=== PATIENT | male | born 1995 | race Hispanic/Latino ===

== ENCOUNTER 2024-05-28 15:11 | Emergency (ER) | payer SELFPAY ==
[~2024-05-28] VITALS: Ht 167.6 cm; Wt 81.6 kg
--- NOTE | 2024-05-28 15:15 | ERN ---
ED Note History of Present Illness Stated Complaint: BACK PAIN Chief Complaint: Back Pain-No Injury Time Seen by MD: 15:13 Dictation: PATIENT IS A 29-YEAR-OLD MALE COMING IN VIA EMS WITH COMPLAINTS OF DIFFUSE LUMBAR PAIN WITH LEFT LEG SCIATICA ONSET WAS SEVERAL DAYS PRIOR TO ARRIVAL. HE STATES HE WAS DOING NOTHING HAS NOT DONE ANY LIFTING TWISTING WEIGHTLIFTING. NO CHANGE IN BOWEL OR BLADDER FUNCTION NO CHANGE IN URINATION. PRIMARY CARE DOCTOR Allergies: Coded Allergies: No Known Drug Allergies (Unverified Allergy, Unknown, 05/28/24) Past Medical History RN Note Reviewed/Agreed w/PFSH: Yes Review of System Dictation CONSTITUTIONAL: NEGATIVE EXCEPT FOR HPI HEAD/FACE: NEGATIVE EXCEPT FOR HPI EENT: NEGATIVE EXCEPT FOR HPI RESPIRATORY: NEGATIVE EXCEPT FOR HPI GASTROINTESTINAL/ABDOMINAL: NEGATIVE EXCEPT FOR HPI GENITOURINARY: NEGATIVE EXCEPT FOR HPI MUSCULOSKELETAL: NEGATIVE EXCEPT FOR HPI DIFFUSE LUMBAR PAIN LEFT SCIATICA INTEGUMENTARY: NEGATIVE EXCEPT FOR HPI NEUROLOGICAL/PSYCH: NEGATIVE EXCEPT FOR HPI HEMATOLOGIC/LYMPHATIC: NEGATIVE EXCEPT FOR HPI ALL SYSTEMS NEGATIVE, EXCEPT NOTED ABOVE. 13 POINT REVIEW OF SYSTEMS ASSESSED AND ALL NEGATIVE EXCEPT FOR ABOVE. Initial Vital Sign VS Vital Signs Date Time Temp Pulse Resp B/P (MAP) Pulse Ox O2 Delivery O2 Flow Rate FiO2 05/28/24 15:14 99.0 60 16 116/82 98 Room Air 0 05/28/24 15:35 21 Physical Exam Dictation VITAL SIGNS REVIEWED GENERAL APPEARANCE: ALERT, ORIENTED X 3, MODERATE ACUTE DISTRESS, WELL DEVELOPED, NOURISHED. HEAD AND FACE: NON-TRAUMATIC. EYES: PERRL, PINK CONJUNCTIVAS, EYELID NO TRAUMA, ANTERIOR CHAMBER WITH ARCUS SENILIS. EARS: PINNAS INTACT AND NO SIGNS OF TRAUMA OR ERYTHEMA EAR CANALS CLEAR AND NO DISCHARGE TM NO ERYTHEMA NOSE: NO DISCHARGE, NO BLEEDING. OROPHARYNX: MOUTH NORMAL, TONGUE PINK, PHARYNX CLEAR,NO ERYTHEMA, TONSILS NO EXUDATES, NO ABSCESSES NOTED, MUCOUS MEMBRANE MOIST NECK: SUPPLE, NON-TENDER, NO THYROMEGALY, NO MASSES, NO JVD, NO BRUITS BREAST:DEFERRED CHEST:NO TENDERNESS, NO CREPITUS, NO PARADOXICAL MOVEMENT, NO RETRACTIONS LUNGS:CLEAR, WELL-VENTILATED, SYMMETRIC, NO RALES, NO WHEEZING, NO RHONCHI, NO STRIDOR, GOOD BREATH SOUNDS BILATERALLY HEART: REGULAR RATE, REGULAR RHYTHM, NO MURMUR, NO GALLOPS VASCULAR: NO PERIPHERAL EDEMA, ABDOMEN: SOFT, POSITIVE BOWEL SOUNDS, NONDISTENDED, NO GUARDING, NONTENDER, NO REBOUND, NO MASSES NO HEPATOMEGALY, NO SPLENOMEGALY, NO OCAMPO'S SIGN, NO HERNIAS. RECTAL: DEFERRED GENITAL: DEFERRED NEUROLOGICAL: NORMAL SPEECH, MOTOR FUNCTION INTACT, SENSORY FUNCTION INTACT MUSCULOSKELETAL: NECK NONTENDER, FULL RANGE OF MOTION, DIFFUSE LUMBAR PAIN WITHOUT STEP-OFF HER SCIATICA, FULL RANGE OF MOTION, NEGATIVE STRAIGHT LEG RAISE 10 BILATERALLY EXTREMITIES: NONTENDER, FULL RANGE OF MOTION SKIN: COLOR PINK, DRY, NO TURGOR, NO RASH, NO LACERATIONS, NO ABRASIONS, NO CONTUSIONS. LYMPHATIC: DEFERRED Results (Laboratory/Radiology) Laboratory/Radiology /LUMBAR X-RAY NEGATIVE Labs Reviewed?: Yes ED Course ED Course Orders Procedure Category Date Status Time Cyclobenzaprine Hcl PHA 05/28/24 Complete (Cyclobenzaprine Hcl 15:30 Ibuprofen 800 Mg Tab PHA 05/28/24 Complete (Motrin) 15:30 Lumbar Spine 2-3vws RAD 05/28/24 Resulted 15:13 Current Medications Medications (Trade) Dose Ordered Sig/Bennett Route PRN Reason Start Time Stop Time Status Last Admin Dose Admin Cyclobenzaprine HCl (Cyclobenzaprine HCl) 10 mg ONCE ONCE PO 05/28/24 15:30 05/28/24 15:31 DC 05/28/24 15:26 Ibuprofen (moTRIN) 800 mg ONCE ONCE PO 05/28/24 15:30 05/28/24 15:31 DC 05/28/24 15:26 Vital Signs Date Time Temp Pulse Resp B/P (MAP) Pulse Ox O2 Delivery O2 Flow Rate FiO2 05/28/24 15:35 99.0 60 16 116/82 99 Room Air* 0 21 05/28/24 15:14 99.0 60 16 116/82 98 Room Air 0 1600/PATIENT DISCHARGED HOME WITH A ACUTE LUMBAR PAIN WITH SCIATICA. TOLD NO LIFTING GREATER THAN 10 LB TAKE IBUPROFEN/PREDNISONE/FLEXERIL DIRECTED FOLLOW UP WITH HIS PRIMARY CARE DOCTOR FOR RECOMMENDED MRI Medical Decision Making MDM MEDICAL DISCHARGE MAKING BASED ON PAIN MANAGEMENT FOR LUMBAR PAIN WITH SCIATICA LUMBAR FILM X-RAY NEGATIVE PATIENT DISCHARGED HOME WITH SUPPORTIVE MEDICATIONS LIFTING RESTRICTIONS TOLD SEE HIS PRIMARY CARE DOCTOR FOR MRI DX & DISP Disposition: Discharge Departure Impression: Primary Impression: Back pain of lumbar region with sciatica Condition: Stable Scripts Ibuprofen (Ibuprofen 800 mg Tab) 800 Mg Tab 800 MG PO Q8H PRN for fever or pain, #30 TAB 0 Refills Prov: ADRIANE GUERRA NP 05/28/24 Cyclobenzaprine HCl (Cyclobenzaprine HCl) 10 Mg Tablet 1 TAB PO TID for muscle spasms for 10 Days, #30 TAB 0 Refills Prov: ADRIANE GUERRA NP 05/28/24 Prednisone (Prednisone) 20 Mg Tablet 1 TAB PO AD for 6 Days, #14 TAB 0 Refills TAKE 1 TAB BY MOUTH THREE TIMES PER DAY X3 DAYS, THEN TAKE 1 TAB BY MOUTH TWICE A DAY X2 DAYS, THEN TAKE 1 TAB BY MOUTH ONCE A DAY X1 DAY. TAKE WITH FOOD Prov: ADRIANE GUERRA NP 05/28/24 Additional Instructions: FOLLOW-UP WITH PRIMARY CARE PROVIDER IN 1 TO 2 DAYS. TAKE MEDICATIONS DIRECTED HERE IN THE EMERGENCY ROOM. OKAY TO CONTINUE HOME MEDICATIONS UNLESS OTHERWISE DISCUSSED DURING YOUR VISIT IN THE EMERGENCY ROOM TODAY. RETURN TO YOUR NEAREST EMERGENCY ROOM IF SYMPTOMS WORSEN OR IF THERE IS NO IMPROVEMENT. CALL 911 IF YOU NEED IMMEDIATE ASSISTANCE. TAKE TYLENOL OR MOTRIN OVER-THE- COUNTER NEEDED AND IF NO CONTRAINDICATIONS ARE PRESENT. INCREASE ORAL HYDRATION. A WOUND CULTURE OR URINE CULTURE WAS ORDERED HERE IN THE EMERGENCY ROOM DEPARTMENT PLEASE FOLLOW-UP WITH PRIMARY CARE PROVIDER AND ADVISE THEM TO GET REPEAT PORTS FROM OUR FACILITY. IF YOU HAD ANY FABY WRAP/SPLINTS THAT WERE APPLIED HERE, PLEASE DO NOT REMOVE THEM UNTIL YOU SEE YOUR PRIMARY CARE OR SPECIALTY. TAKE IBUPROFEN AND FLEXERIL EVERY 8 HOURS WITH FOOD FOR THE NEXT TWO DAYS. TAKE PREDNISONE DIRECTED UNTIL GONE. NO LIFTING MORE THAN 10 LB UNTIL CLEARED BY YOUR PRIMARY CARE DOCTOR, AND RECOMMEND MRI OUTPATIENT Referrals: SELF,REFERRAL (PCP) Time of Disposition: 16:01 I have reviewed the case, and I agree with, Diagnosis and Plan ADRIANE GUERRA NP May 28, 2024 15:15
[2024-05-28] MEDS: CYCLOBENZAPRINE HCL 10 MG TABLET PO ONE (15:26)
[2024-05-28] MEDS: ibuPROFEN 800 MG TAB PO ONE (15:26)
--- NOTE | 2024-05-28 15:58 | HMCIMG ---
LUMBAR SPINE RADIOGRAPHS - 2-3 VIEWS INDICATION: Back pain COMPARISON: None FINDINGS: AP, lateral, and coned-down lateral views. Normal lordotic curvature of the lumbar spine is maintained. Five nonrib-bearing lumbar vertebral bodies are noted. No acute fracture or subluxation identified. Vertebral body heights are well-maintained. Disc spaces are well-preserved. IMPRESSION: No fracture or subluxation identified.
[2024-05-28] MEDS ORDERED: CYCL-309 PO (16:02)
[2024-05-28] MEDS ORDERED: PRED20TA3 PO (16:02)
[2024-05-28] MEDS ORDERED: IBUP-2077 PO (16:02)
[2024-05-28 16:16] VITALS: BP 118/75; PULSE 60; RESP 16; TEMP 99; O2SAT 98
== END 2024-05-28 16:17 | disposition home or self-care (01) ==
LOC: EEVIPCON 15:11 → EDH 15:11
DX: M54.42 Lumbago with sciatica, left side (principal)
CPT/HCPCS: 72100; 99283